=== PATIENT | female | born 1985 | race Caucasian/White ===

== ENCOUNTER → 2016-10-14 | Outpatient (CLI) | payer OTHER ==
--- NOTE | 2016-10-14 14:24 | MR ---
EXAMINATION TYPE: MR angio head wo con DATE OF EXAM: 10/14/2016 COMPARISON: MR brain 01/21/2016 HISTORY: Migraines TECHNIQUE: Time of flight images focusing on the [place] were performed without contrast. FINDINGS: Anterior and posterior circulations are patent. Vertebral arteries are codominant. No evide nt vascular malformation or aneurysm. No significant stenosis. No filling defect or evident dissectio n. IMPRESSION: Normal [place] MRA
== END | disposition home or self-care (01) ==
LOC: RADMRIMAIN 10:41
PROVIDERS: ATTEND Psychiatry & Neurology Neurology
DX: G43.001 Migraine without aura, not intractable, with status migrainosus (principal)
CPT/HCPCS: 70544